=== PATIENT | female | born 1955 | race American Indian/Alaskan Native ===

== ENCOUNTER 2017-08-04 10:03 | Outpatient (CLI) | payer OTHER ==
--- NOTE | 2017-08-04 16:31 | Mammography Report ---
BILATERAL DIGITAL SCREENING MAMMOGRAM with CAD: 08/04/17 10:03:00 CLINICAL: Routine screening. COMPARISON:06/30/16 and 01/30/12 FINDINGS: The breasts are almost entirely fatty. A left parenchymal asymmetry on the MLO view requires additional imaging.No architectural distortion or suspicious calcifications.The right breast is negative. IMPRESSION: Left asymmetry requiring further workup. BI-RADS CATEGORY: 0 -- Additional Imaging Evaluation Required RECOMMENDATION: Recall for left true lateral and spot magnification MLO views and left breast ultrasound if needed. ACR BI-RADS MAMMOGRAPHIC CODES: 0 = Needs additional imaging evaluation; 1 = Negative; 2 = Benign; 3 = Probably benign; 4 = Suspicious; 5 = Malignant; 6 = Known biopsy-proven malignancy COMMENT: 1. Dense breast tissue, i.e., adenosis, fibrocystic changes, etc., may obscure an underlying neoplasm. 2. Approximately 10% of cancers are not detected with mammography. 3. A negative mammography report should not delay biopsy if a clinically suspicious mass is present. COMMENT: Patient follow-up letters are generated via our [employer] application.
== END 2017-08-04 10:04 | disposition home or self-care (01) ==
LOC: SPVWC 10:03
PROVIDERS: ATTEND Internal Medicine
DX: Z12.31 Encounter for screening mammogram for malignant neoplasm of breast (principal)
CPT/HCPCS: 77067; G0202

== ENCOUNTER 2017-08-10 09:24 | Outpatient (CLI) | payer OTHER ==
--- NOTE | 2017-08-10 10:14 | Mammography Report ---
Left mammogram: Additional lateral images of the left breast with spot compression in whole breast imaging fails to confirm the persistence of asymmetry as seen on recent screening exam. The current pattern is unchanged compared to studies dating back to 2011. Impression: No asymmetry identified. Recommendation: Annual mammogram followup. BI-RADS CATEGORY: 1 = Negative ACR BI-RADS MAMMOGRAPHIC CODES: 0 = Needs additional imaging evaluation; 1 = Negative; 2 = Benign; 3 = Probably benign; 4 = Suspicious; 5 = Malignant; 6 = Known biopsy-proven malignancy COMMENT: 1. Dense breast tissue, i.e., adenosis, fibrocystic changes, etc., may obscure an underlying neoplasm. 2. Approximately 10% of cancers are not detected with mammography. 3. A negative mammography report should not delay biopsy if a clinically suspicious mass is present.
== END 2017-08-10 09:25 | disposition home or self-care (01) ==
LOC: SPVWC 09:24
PROVIDERS: ATTEND Internal Medicine
DX: N60.22 Fibroadenosis of left breast (principal)
CPT/HCPCS: G0206-LT

== ENCOUNTER 2019-01-28 10:18 | Day surgery (SDC) | payer OTHER ==
[~2019-01-28 10:18] MED LIST: NACL 0.9% 1000 ML 1,000 ML IV SCH
--- NOTE | 2019-01-28 11:22 | Anesthesia Day of Surgery ---
Anesthesia Day of Surgery - Day of Surgery Patient Examined: Yes Patient H&P Reviewed: Yes Patient is NPO: Yes Beta Blockers: No
--- NOTE | 2019-01-28 11:23 | Anesthesia Consultation ---
Anesthesia Consult and Med Hx Date of service: 01/28/19 - Airway Anesthetic Teeth Evaluation: Good ROM Head & Neck: Adequate Mental/Hyoid Distance: Adequate Mallampati Class: Class III Intubation Access Assessment: Good - Pulmonary Exam CTA: Yes - Cardiac Exam Cardiac Exam: No Murmur - Pre-Operative Health Status ASA Pre-Surgery Classification: ASA3 Proposed Anesthetic Plan: MAC - Pulmonary Hx Smoking: No Hx Asthma: No COPD: No Hx Pneumonia: No - Cardiovascular System Hx Hypertension: Yes - Central Nervous System Hx Psychiatric Problems: Yes - Gastrointestinal Hx Gastroesophageal Reflux Disease: No - Endocrine Hx Renal Disease: Yes (STAGE III (NO DIALYSIS)) Hx End Stage Renal Disease: No Hx Hypothyroidism: Yes - Other Systems Hx Alcohol Use: No Hx Obesity: No
[2019-01-28] MEDS ORDERED: VERSED ONE (11:27)
[2019-01-28] MEDS ORDERED: DIPRIVAN 10 MG/ML IV ONE (11:27)
[2019-01-28] MEDS ORDERED: XYLOCAINE 2% INFILTRATI ONE (11:27)
[2019-01-28] MEDS ORDERED: WATER FOR IRRIG STERILE IR ONE (12:01)
--- NOTE | 2019-01-28 12:15 | Procedure Note ---
Date of procedure: 01/28/19 Pre-op diagnosis: Melena Post-op diagnosis: other (No active UGI Bleeding noted/ Mild, Distal Esophagitis/ Gastritis (R/O Atrophic Gastritis)) Procedure: EGD with Biopsy Anesthesia: MAC Estimated blood loss: minimal Pathology: list Specimen disposition: to lab Condition: stable Disposition: same day (Check lab for anti-parietal cell antibody. Resume home medication. Avoid aspirin and NSAID for 5 days and follow up in 1 to 2 weeks ([phone]).)
[2019-01-28 12:40] VITALS: BP 105/68
--- NOTE | 2019-01-28 13:58 | Operative Report ---
PROCEDURE: Esophagogastroduodenoscopy with biopsy. INDICATIONS FOR PROCEDURE: This is a 63-year-old -[place] female who has an underlying history of hypothyroidism and also has elevated gastrin level, possibly secondary to atrophic gastritis. She states that she has been having some dark stools. An EGD was done to make sure there was not any significant upper GI source of bleeding. DESCRIPTION OF PROCEDURE: Procedure was done after getting informed consent with MAC anesthesia. Instrument was passed through the hypopharynx into the esophagus, which showed mild distal esophagitis. Stomach showed some mild gastritis. Biopsy was done from the gastric body to rule out for possible atrophic gastritis. There was some effacement of the gastric folds suggestive possibly of atrophic gastritis. The pylorus is patent. Duodenum in the first and second portion appeared normal. There was no bleeding noted within the gastric or the duodenal lumen. There was minimal bleeding associated with the biopsy. No complications associated with the procedure. ASSESSMENT: History of melena. No active upper gastrointestinal source of bleeding noted. Mild distal esophagitis, gastritis, rule out atrophic gastritis. PLAN: Plan is to have the patient continue with present treatment, avoid aspirin and aspirin-related products for the next few days to check the lab for antiparietal cell antibody, have the patient follow up in the office in 1-2 weeks' time. RNCarmela was in the room throughout the entirety of the procedure. JOB# [id number] KEYSHAWN/DONY
== END 2019-01-28 10:19 | disposition home or self-care (01) ==
LOC: GIO 10:18
DX: K29.50 Unspecified chronic gastritis without bleeding (principal); K21.0 Gastro-esophageal reflux disease with esophagitis; I12.9 Hypertensive chronic kidney disease with stage 1 through stage 4 chronic kidney disease, or unspecified chronic kidney disease; N18.3 Chronic kidney disease, stage 3 (moderate); M19.90 Unspecified osteoarthritis, unspecified site; E03.9 Hypothyroidism, unspecified; F32.9 Major depressive disorder, single episode, unspecified; F41.9 Anxiety disorder, unspecified; Z79.899 Other long term (current) drug therapy; Z86.2 Personal history of diseases of the blood and blood-forming organs and certain disorders involving the immune mechanism
CPT/HCPCS: 36415; 43239; 88305; 88342; J2250; J2704; J7030

== ENCOUNTER 2021-02-05 09:48 | Outpatient (CLI) | payer BC ==
--- NOTE | 2021-02-05 11:09 | Mammography Report ---
DIGITAL SCREENING MAMMOGRAM WITH CAD, 02/05/2021 CLINICAL INFORMATION / INDICATION: Routine screening mammography. TECHNIQUE: Digital bilateral 2D mammography was obtained in the craniocaudal and mediolateral obliqu e projections. This examination was interpreted with the benefit of Computer-Aided Detection analysis . COMPARISON: 08/04/2017, 06/30/2016, 01/30/2012 FINDINGS: Breast Density: There are scattered areas of fibroglandular density. No dominant mass, suspicious calcifications, or architectural distortion in either breast. IMPRESSION: No mammographic evidence of malignancy. Follow up recommendation: Routine yearly BI-RADS Category 1: Negative. A "normal" or negative report should not discourage follow up or biopsy of a clinically significant f inding. A written summary of these findings will be mailed to the patient. The patient will be entered into a mammography reporting system which will generate a reminder letter for the patient's next appointmen t at the appropriate interval. [employer] recommends yearly mammograms starting at age 40 and continuing as l erendira as a woman is in good health. Breast MRI is recommended for women with an approximate 20-25% or greater lifetime risk of breast cancer, including women with a strong family history of breast or ova amber cancer or who have been treated for Hodgkin's disease. Signer Name: Melissa Ibarra MD Signed: 02/05/2021 11:04 AM Workstation Name: [employer]
== END 2021-02-05 09:49 | disposition home or self-care (01) ==
LOC: SPVWC 09:48
PROVIDERS: ATTEND Internal Medicine
DX: Z12.31 Encounter for screening mammogram for malignant neoplasm of breast (principal)
CPT/HCPCS: 77067